=== PATIENT | female | born 1950 | race Caucasian/White ===

== ENCOUNTER → 2016-06-08 | Outpatient (CLI) | payer MEDICARE ==
[~2016-06-08] MED LIST: ACCUPRIL10 MG PO; ALBUTEROL2.5 MG/3 M INH; ALENDRONATE SOD35 MG PO; ALLEGRA ALLERGY60 MG PO; AMBIEN10 MG PO; AMLODIPINE BESY10 MG PO; ASPIR 8181 MG PO; ATROVENT INH S2.5 ML INH; BELSOMRA10 MG PO; BRILINTA90 MG PO; BROVANA15 MCG/2 M INH; CARDIZEM30 MG PO; COMBIVENT0.074 GM/I INH; CULTURELLE1 EACH PO; DALIRESP 500500 MCG PO; ECOTRIN81 MG PO; ELAVIL 10 MG TA10 MG PO; ELIQUIS 5 MG TAB5 MG PO; ELIQUIS5 MG PO; ENSURE LIQUID237 ML PO; ENSURE ORIGINA237 ML PO; FLAGYL500 MG PO; FLEXERIL 10 MG10 MG PO; FLONASE 0.05% N16 GM; HEPARIN SO5000 UNIT2 SC; HYDRALAZINE HCL50 MG PO; HYDROCHLOROTHIA25 MG PO; HYDROXYZINE HCL10 MG PO; HYDROXYZINE HCL50 MG PO; IMODIUM CAP 2 MG2 MG PO; INCRUSE ELLI62.5 MCG INH; ISOSORBIDE MON120 MG PO; LANOXIN TAB0.125 MG PO; LASIX 40 MG TAB40 MG PO; LASIX40 MG PO; LEVAQUIN500 MG PO; LIPITOR TAB 1010 MG PO; LIPITOR20 MG PO; LISINOPRIL40 MG PO; MEDROL2 MG PO; MEDROL4 MG PO; MEGACE400 MG/10 PO; METOPROLOL TART50 MG PO; MULTIPLE VITAM1 EAC1 PO; NITROGLYCERIN4.9 GM TL; NITROSTAT 0.40.4 MG SL; NORVASC 5 MG TAB5 MG PO; PERFOROMIS20 MCG/2 M INH; PLAVIX 75 MG TA75 MG PO; POTASSIUM CHLO20 ME1 PO; PRED FORTE OP; PREDNISONE 10 M10 MG PO; PROTONIX40 MG PO; PULMICORT0.25 MG/2 INH; RANEXA1000 MG PO; RANEXA500 MG PO; SENOKOT-S TABL1 EACH PO; SINGULAIR10 MG PO; SOLUMEDROL INJ125 MG IV; SPIRIVA18 MCG INH; SPIRONOLACTONE25 MG PO; SYMBICORT 16010.2 GM INH; TENORMIN 50 MG50 MG PO; TIZANIDINE HCL2 M1 PO; TIZANIDINE HCL2 MG PO; TRAMADOL HCL50 MG PO; TYLENOL 325MG325 MG PO; VITAMIN C 500500 MG PO; VITAMIN D50000 UNIT PO; VOLTAREN 0.1%2.5 ML OP; XOPENEX0.63 MG/3 INH; ZEBETA 5 MG TAB5 MG PO; ZESTRIL 40 MG T40 MG PO; ZOCOR10 MG PO
[2016-06-08 13:35] LABS: HEMOGLOBIN 8.9 gm/dl (12.3-15.3); RED BLOOD COUNT 3.24 M/UL (4.00-5.10); WHITE BLOOD COUNT 7.6 K/UL (4.5-11.0)
== END ==
LOC: LAB 13:01
PROVIDERS: Internal Medicine Interventional Cardiology
DX: Z01.810 Encounter for preprocedural cardiovascular examination (principal)
CPT/HCPCS: 36415; 80048; 85025; 85610; 85730; 93005

== ENCOUNTER 2016-06-09 06:15 | Outpatient (CLI) | payer MEDICARE ==
[~2016-06-09 06:15] MED LIST changes: -ACCUPRIL10 MG PO; -ALBUTEROL2.5 MG/3 M INH; -ATROVENT INH S2.5 ML INH; -BRILINTA90 MG PO; -BROVANA15 MCG/2 M INH; -CARDIZEM30 MG PO; -CULTURELLE1 EACH PO; -ENSURE LIQUID237 ML PO; -ENSURE ORIGINA237 ML PO; -FLAGYL500 MG PO; -FLONASE 0.05% N16 GM; -HEPARIN SO5000 UNIT2 SC; -HYDROXYZINE HCL10 MG PO; -IMODIUM CAP 2 MG2 MG PO; -INCRUSE ELLI62.5 MCG INH; -LANOXIN TAB0.125 MG PO; -LASIX 40 MG TAB40 MG PO; -LASIX40 MG PO; -LIPITOR TAB 1010 MG PO; -MEDROL4 MG PO; -MEGACE400 MG/10 PO; -METOPROLOL TART50 MG PO; -MULTIPLE VITAM1 EAC1 PO; -NITROGLYCERIN4.9 GM TL; -POTASSIUM CHLO20 ME1 PO; -SENOKOT-S TABL1 EACH PO; -SOLUMEDROL INJ125 MG IV; -SPIRONOLACTONE25 MG PO; -VITAMIN C 500500 MG PO; -XOPENEX0.63 MG/3 INH; -ZEBETA 5 MG TAB5 MG PO
[2016-06-09] MEDS ORDERED: SPIRONOLACTONE25 MG PO (07:36)
[2016-06-09] MEDS ORDERED: ALLEGRA ALLERGY60 MG PO (07:37)
[2016-06-09] MEDS ORDERED: FLONASE 0.05% N16 GM (07:38)
[2016-06-09] MEDS ORDERED: LASIX 40 MG TAB40 MG PO (07:38)
[2016-06-09] MEDS ORDERED: NITROGLYCERIN4.9 GM TL (07:39)
[2016-06-10] MEDS ORDERED: BRILINTA90 MG PO (08:30)
== END 2016-06-10 09:49 | disposition home or self-care (01) ==
LOC: CATH 06:15 → PROG CARE 13:21 → CATH 06-10 09:49
DX: I25.118 Atherosclerotic heart disease of native coronary artery with other forms of angina pectoris (principal); T82.855A Stenosis of coronary artery stent, initial encounter; R94.39 Abnormal result of other cardiovascular function study; I11.0 Hypertensive heart disease with heart failure; I50.9 Heart failure, unspecified; I49.5 Sick sinus syndrome; F17.200 Nicotine dependence, unspecified, uncomplicated; J44.9 Chronic obstructive pulmonary disease, unspecified; I48.0 Paroxysmal atrial fibrillation; E78.5 Hyperlipidemia, unspecified; Z95.0 Presence of cardiac pacemaker; Z95.1 Presence of aortocoronary bypass graft; Z95.5 Presence of coronary angioplasty implant and graft; Z88.6 Allergy status to analgesic agent; Z88.5 Allergy status to narcotic agent; Z88.0 Allergy status to penicillin; Z88.2 Allergy status to sulfonamides; Z88.8 Allergy status to other drugs, medicaments and biological substances; R60.9 Edema, unspecified; D64.9 Anemia, unspecified; Z79.82 Long term (current) use of aspirin; Z79.891 Long term (current) use of opiate analgesic; Z79.899 Other long term (current) drug therapy; Z79.02 Long term (current) use of antithrombotics/antiplatelets; F41.9 Anxiety disorder, unspecified; Z85.3 Personal history of malignant neoplasm of breast; Z86.79 Personal history of other diseases of the circulatory system; F32.9 Major depressive disorder, single episode, unspecified; G47.00 Insomnia, unspecified; J45.909 Unspecified asthma, uncomplicated; E55.9 Vitamin D deficiency, unspecified
CPT/HCPCS: 85347; 94640; 94664; C1725; C1769; C1874; C1887; C9600; J0461; J0583; J1644; J2250; J2270; J3010; J7030; Q0163; Q9965

== ENCOUNTER 2016-06-11 13:58 | Emergency (ER) | payer MEDICARE ==
[~2016-06-11 13:58] MED LIST changes: +BRILINTA90 MG PO; +FLONASE 0.05% N16 GM; +LASIX 40 MG TAB40 MG PO; +NITROGLYCERIN4.9 GM TL; +SPIRONOLACTONE25 MG PO
[2016-06-11 14:45] LABS: HEMOGLOBIN 8.8 gm/dl (12.3-15.3); RED BLOOD COUNT 3.22 M/UL (4.00-5.10); WHITE BLOOD COUNT 7.8 K/UL (4.5-11.0)
== END 2016-06-12 02:12 ==
LOC: ER1 13:58
PROVIDERS: Emergency Medicine
DX: I50.9 Heart failure, unspecified (principal); D64.9 Anemia, unspecified; K92.2 Gastrointestinal hemorrhage, unspecified; J44.9 Chronic obstructive pulmonary disease, unspecified; Z95.1 Presence of aortocoronary bypass graft; Z95.5 Presence of coronary angioplasty implant and graft; Z88.2 Allergy status to sulfonamides; Z88.0 Allergy status to penicillin; Z88.5 Allergy status to narcotic agent
CPT/HCPCS: 36415; 36600; 71010; 80053; 81001; 82550; 82553; 82803; 83880; 84484; 85025; 85610; 93005; 94640; 94660; 94664; 96372; 96374; 96375; 96376; 99285; J1650; J1940; J2270; J2930

== ENCOUNTER 2016-07-10 17:20 | Observation (INO) | payer MEDICARE ==
[~2016-07-10] VITALS: Ht 167.6 cm; Wt 59.2 kg
[2016-07-10 18:17] LABS: HEMOGLOBIN 10.3 gm/dl (12.3-15.3); RED BLOOD COUNT 3.85 M/UL (4.00-5.10); WHITE BLOOD COUNT 9.5 K/UL (4.5-11.0)
== END 2016-07-11 21:25 | disposition home or self-care (01) ==
LOC: ER1 17:20 → ZEROF 19:36 → MED SURG 4 21:11
PROVIDERS: Specialist/Technologist Athletic Trainer; ADMIT Internal Medicine
DX: E87.5 Hyperkalemia (principal); F41.9 Anxiety disorder, unspecified; D50.0 Iron deficiency anemia secondary to blood loss (chronic); I73.9 Peripheral vascular disease, unspecified; I48.2 Chronic atrial fibrillation; J44.9 Chronic obstructive pulmonary disease, unspecified; I25.10 Atherosclerotic heart disease of native coronary artery without angina pectoris; I10 Essential (primary) hypertension; I49.5 Sick sinus syndrome; Z85.3 Personal history of malignant neoplasm of breast; Z87.891 Personal history of nicotine dependence; Z88.0 Allergy status to penicillin; Z88.2 Allergy status to sulfonamides; Z88.5 Allergy status to narcotic agent; Z88.6 Allergy status to analgesic agent; Z79.82 Long term (current) use of aspirin; Z79.899 Other long term (current) drug therapy; Z90.49 Acquired absence of other specified parts of digestive tract; Z95.0 Presence of cardiac pacemaker; Z95.1 Presence of aortocoronary bypass graft; Z98.890 Other specified postprocedural states
CPT/HCPCS: 36415; 36600; 71010; 80048; 80053; 82550; 82553; 82803; 83874; 83880; 84439; 84443; 84484; 85025; 93005; 94640; 94660; 94664; 99285; G0378

== ENCOUNTER 2016-07-13 15:11 | Inpatient (IN) | payer MEDICARE ==
[~2016-07-13] VITALS: Ht 167.6 cm; Wt 53.3 kg
[2016-07-13 17:31] LABS: HEMOGLOBIN 9.5 gm/dl (12.3-15.3); RED BLOOD COUNT 3.62 M/UL (4.00-5.10); WHITE BLOOD COUNT 9.2 K/UL (4.5-11.0)
[2016-07-13] MEDS ORDERED: ALBUTEROL2.5 MG/3 M INH (23:29)
[2016-07-13] MEDS ORDERED: TYLENOL 325MG325 MG PO (23:29)
[2016-07-13] MEDS ORDERED: PLAVIX 75 MG TA75 MG PO (23:29)
[2016-07-13] MEDS ORDERED: HYDROCHLOROTHIA25 MG PO (23:30)
[2016-07-13] MEDS ORDERED: CULTURELLE1 EACH PO (23:32)
[2016-07-13] MEDS ORDERED: HYDROXYZINE HCL10 MG PO (23:32)
[2016-07-13] MEDS ORDERED: FLAGYL500 MG PO (23:33)
[2016-07-13] MEDS ORDERED: INCRUSE ELLI62.5 MCG INH (23:34)
[2016-07-13] MEDS ORDERED: IMODIUM CAP 2 MG2 MG PO (23:35)
[2016-07-13] MEDS ORDERED: POTASSIUM CHLO20 ME1 PO (23:39)
[2016-07-14 05:07] LABS: HEMOGLOBIN 9.3 gm/dl (12.3-15.3); RED BLOOD COUNT 3.61 M/UL (4.00-5.10); WHITE BLOOD COUNT 10.4 K/UL (4.5-11.0)
[2016-07-15 05:34] LABS: RED BLOOD COUNT 3.44 M/UL (4.00-5.10); WHITE BLOOD COUNT 12.8 K/UL (4.5-11.0)
[2016-07-16 05:25] LABS: HEMOGLOBIN 9.2 gm/dl (12.3-15.3); RED BLOOD COUNT 3.62 M/UL (4.00-5.10)
[2016-07-18 04:51] LABS: BUN/CREATININE RATIO 56 (0-10)
[2016-07-19 04:28] LABS: HEMOGLOBIN 9.2 gm/dl (12.3-15.3); RED BLOOD COUNT 3.59 M/UL (4.00-5.10)
--- NOTE | 2016-07-19 05:08 | NUR ---
VIRAL SWAB OBTAINED OF PATIENT GENITALIA AFTER EXPLAINING TO PATIENT WHAT TO EXPECT DURING TESTING. PT VOICES UNDERSTANDING. TOLERATED SWAB WELL. VOICES NO COMPLAINTS. PT REPOSITIONED AND SPECIMEN TRANSPORTED TO LAB AFTER LABELING AT PATIENT BEDSIDE
[2016-07-19 10:55] LABS: BUN/CREATININE RATIO 50 (0-10)
[2016-07-20 12:58] LABS: HEMOGLOBIN 9.6 gm/dl (12.3-15.3); RED BLOOD COUNT 3.72 M/UL (4.00-5.10); WHITE BLOOD COUNT 11.8 K/UL (4.5-11.0)
[2016-07-21 07:50] LABS: BUN/CREATININE RATIO 38 (0-10)
[2016-07-24 04:14] LABS: BUN/CREATININE RATIO 37 (0-10)
[2016-07-24 14:30] LABS: HEMOGLOBIN 8.9 gm/dl (12.3-15.3); RED BLOOD COUNT 3.45 M/UL (4.00-5.10); WHITE BLOOD COUNT 13.1 K/UL (4.5-11.0)
[2016-07-25 13:24] LABS: HEMOGLOBIN 7.9 gm/dl (12.3-15.3)
[2016-07-25 13:31] LABS: RED BLOOD COUNT 3.05 M/UL (4.00-5.10); WHITE BLOOD COUNT 9.3 K/UL (4.5-11.0)
[2016-07-25 13:44] LABS: BUN/CREATININE RATIO 25 (0-10)
[2016-07-26 15:22] LABS: HEMOGLOBIN 8.7 gm/dl (12.3-15.3); RED BLOOD COUNT 3.31 M/UL (4.00-5.10); WHITE BLOOD COUNT 9.9 K/UL (4.5-11.0)
[2016-07-26 15:36] LABS: BUN/CREATININE RATIO 24 (0-10)
== END 2016-07-29 16:11 | disposition other institution (70) | DRG 189 ==
LOC: ER1 15:11 → PROG CARE 19:42 → ZEROF 19:42 → PROG CARE 21:15 → M/S 07-26 19:50
PROVIDERS: Emergency Medicine; Hospitalist; Internal Medicine; Internal Medicine Pulmonary Disease; ADMIT Internal Medicine
DX: J96.21 Acute and chronic respiratory failure with hypoxia (principal); I50.33 Acute on chronic diastolic (congestive) heart failure; J15.1 Pneumonia due to Pseudomonas; G93.40 Encephalopathy, unspecified; J44.0 Chronic obstructive pulmonary disease with (acute) lower respiratory infection; J44.1 Chronic obstructive pulmonary disease with (acute) exacerbation; E46 Unspecified protein-calorie malnutrition; Z68.1 Body mass index [BMI] 19.9 or less, adult; I11.0 Hypertensive heart disease with heart failure; I48.0 Paroxysmal atrial fibrillation; I25.10 Atherosclerotic heart disease of native coronary artery without angina pectoris; S64.22XA Injury of radial nerve at wrist and hand level of left arm, initial encounter; R20.2 Paresthesia of skin; G31.84 Mild cognitive impairment of uncertain or unknown etiology; F32.9 Major depressive disorder, single episode, unspecified; I49.5 Sick sinus syndrome; D64.9 Anemia, unspecified; R19.7 Diarrhea, unspecified; J01.00 Acute maxillary sinusitis, unspecified; E78.5 Hyperlipidemia, unspecified; R50.9 Fever, unspecified; Z87.891 Personal history of nicotine dependence; S40.022A Contusion of left upper arm, initial encounter; S40.021A Contusion of right upper arm, initial encounter; Z96.651 Presence of right artificial knee joint; Z88.0 Allergy status to penicillin; Z95.5 Presence of coronary angioplasty implant and graft; Z95.1 Presence of aortocoronary bypass graft; Z95.0 Presence of cardiac pacemaker; Z88.2 Allergy status to sulfonamides; Z88.5 Allergy status to narcotic agent; Z88.8 Allergy status to other drugs, medicaments and biological substances; Z79.82 Long term (current) use of aspirin; Z79.01 Long term (current) use of anticoagulants; Z79.1 Long term (current) use of non-steroidal anti-inflammatories (NSAID); Z79.899 Other long term (current) drug therapy; Z87.81 Personal history of (healed) traumatic fracture; Z82.49 Family history of ischemic heart disease and other diseases of the circulatory system; Z80.1 Family history of malignant neoplasm of trachea, bronchus and lung; X58.XXXA Exposure to other specified factors, initial encounter; Y93.9 Activity, unspecified; Y92.009 Unspecified place in unspecified non-institutional (private) residence as the place of occurrence of the external cause; Z85.3 Personal history of malignant neoplasm of breast
CPT/HCPCS: 36415; 36600; 70450; 71010; 71250; 80048; 80053; 80202; 82140; 82550; 82553; 82803; 83605; 83735; 83874; 83880; 84100; 84132; 84439; 84443; 84484; 85025; 85027; 85610; 87040; 87070; 87077; 87186; 87205; 87252; 93005; 93971; 94640; 94660; 94664; 94760; 96374; 96375; 97110; 97116; 97530; 97535; 99285; G0378; J0456; J1120; J1650; J1940; J2185; J2270; J2920; J2930; J3370; J3480; J7030; J7050; J7070; J7509

== ENCOUNTER 2016-08-12 13:35 | Inpatient (IN) | payer MEDICARE ==
[~2016-08-12] VITALS: Ht 167.6 cm; Wt 60.3 kg
[~2016-08-12 13:35] MED LIST changes: +ALBUTEROL2.5 MG/3 M INH; +CULTURELLE1 EACH PO; +FLAGYL500 MG PO; +HYDROXYZINE HCL10 MG PO; +IMODIUM CAP 2 MG2 MG PO; +INCRUSE ELLI62.5 MCG INH; +POTASSIUM CHLO20 ME1 PO
[2016-08-12] MEDS ORDERED: ENSURE LIQUID237 ML PO (18:18)
[2016-08-12] MEDS ORDERED: MULTIPLE VITAM1 EAC1 PO (18:19)
[2016-08-12] MEDS ORDERED: MEGACE400 MG/10 PO (18:19)
[2016-08-12] MEDS ORDERED: SOLUMEDROL INJ125 MG IV (18:20)
[2016-08-12] MEDS ORDERED: BROVANA15 MCG/2 M INH (18:21)
[2016-08-12] MEDS ORDERED: SPIRIVA18 MCG INH (18:21)
[2016-08-12] MEDS ORDERED: VITAMIN C 500500 MG PO (18:22)
[2016-08-12] MEDS ORDERED: ZEBETA 5 MG TAB5 MG PO (18:22)
[2016-08-12] MEDS ORDERED: XOPENEX0.63 MG/3 INH (18:22)
[2016-08-12] MEDS ORDERED: NORVASC 5 MG TAB5 MG PO (18:23)
[2016-08-13 05:09] LABS: BUN/CREATININE RATIO 76 (0-10)
[2016-08-14 04:25] LABS: HEMOGLOBIN 7.4 gm/dl (12.3-15.3); RED BLOOD COUNT 2.88 M/UL (4.00-5.10); WHITE BLOOD COUNT 13.5 K/UL (4.5-11.0)
[2016-08-14 04:41] LABS: BUN/CREATININE RATIO 70 (0-10)
[2016-08-15 05:12] LABS: RED BLOOD COUNT 2.83 M/UL (4.00-5.10); WHITE BLOOD COUNT 11.7 K/UL (4.5-11.0)
[2016-08-15 05:27] LABS: BUN/CREATININE RATIO 40 (0-10)
[2016-08-16 04:55] LABS: HEMOGLOBIN 8.6 gm/dl (12.3-15.3); WHITE BLOOD COUNT 14.5 K/UL (4.5-11.0)
[2016-08-16 05:15] LABS: BUN/CREATININE RATIO 49 (0-10)
[2016-08-16 05:22] LABS: RED BLOOD COUNT 3.43 M/UL (4.00-5.10)
[2016-08-17 06:07] LABS: HEMOGLOBIN 8.8 gm/dl (12.3-15.3); RED BLOOD COUNT 3.51 M/UL (4.00-5.10)
[2016-08-17 06:25] LABS: BUN/CREATININE RATIO 63 (0-10)
[2016-08-18 04:21] LABS: HEMOGLOBIN 8.4 gm/dl (12.3-15.3); RED BLOOD COUNT 3.42 M/UL (4.00-5.10); WHITE BLOOD COUNT 14.5 K/UL (4.5-11.0)
[2016-08-18 05:05] LABS: BUN/CREATININE RATIO 55 (0-10)
[2016-08-19 04:37] LABS: HEMOGLOBIN 8.5 gm/dl (12.3-15.3); RED BLOOD COUNT 3.31 M/UL (4.00-5.10); WHITE BLOOD COUNT 12.1 K/UL (4.5-11.0)
[2016-08-19 04:58] LABS: BUN/CREATININE RATIO 68 (0-10)
[2016-08-20 03:33] LABS: HEMOGLOBIN 8.8 gm/dl (12.3-15.3); RED BLOOD COUNT 3.46 M/UL (4.00-5.10); WHITE BLOOD COUNT 13.4 K/UL (4.5-11.0)
[2016-08-20 03:50] LABS: BUN/CREATININE RATIO 63 (0-10)
[2016-08-21 04:34] LABS: HEMOGLOBIN 8.6 gm/dl (12.3-15.3); RED BLOOD COUNT 3.4 M/UL (4.00-5.10); WHITE BLOOD COUNT 10.2 K/UL (4.5-11.0)
[2016-08-21 04:46] LABS: BUN/CREATININE RATIO 87 (0-10)
[2016-08-22 03:36] LABS: RED BLOOD COUNT 3.56 M/UL (4.00-5.10)
[2016-08-22 03:37] LABS: WHITE BLOOD COUNT 13.2 K/UL (4.5-11.0)
[2016-08-22 03:52] LABS: BUN/CREATININE RATIO 97 (0-10)
[2016-08-23 04:06] LABS: HEMOGLOBIN 8.7 gm/dl (12.3-15.3); RED BLOOD COUNT 3.4 M/UL (4.00-5.10)
[2016-08-23 04:19] LABS: WHITE BLOOD COUNT 17.2 K/UL (4.5-11.0)
[2016-08-23 04:28] LABS: BUN/CREATININE RATIO 85 (0-10)
[2016-08-24 03:45] LABS: HEMOGLOBIN 8.8 gm/dl (12.3-15.3); RED BLOOD COUNT 3.5 M/UL (4.00-5.10); WHITE BLOOD COUNT 13.8 K/UL (4.5-11.0)
[2016-08-24 04:20] LABS: BUN/CREATININE RATIO 74 (0-10)
[2016-08-24] MEDS ORDERED: LANOXIN TAB0.125 MG PO (10:59)
[2016-08-24] MEDS ORDERED: LIPITOR TAB 1010 MG PO (10:59)
[2016-08-24] MEDS ORDERED: CARDIZEM30 MG PO (11:01)
[2016-08-24] MEDS ORDERED: HEPARIN SO5000 UNIT2 SC (11:04)
[2016-08-24] MEDS ORDERED: MEDROL4 MG PO (11:06)
[2016-08-24] MEDS ORDERED: METOPROLOL TART50 MG PO (11:09)
[2016-08-24] MEDS ORDERED: ATROVENT INH S2.5 ML INH (11:10)
[2016-08-24] MEDS ORDERED: XOPENEX0.63 MG/3 INH (11:11)
[2016-08-24] MEDS ORDERED: ENSURE ORIGINA237 ML PO (11:13)
[2016-08-24] MEDS ORDERED: SENOKOT-S TABL1 EACH PO (11:13)
[2016-08-24] MEDS ORDERED: LASIX40 MG PO (11:14)
[2016-08-24] MEDS ORDERED: ACCUPRIL10 MG PO (11:14)
== END 2016-08-24 13:20 | DRG 207 ==
LOC: CCU 13:35
PROVIDERS: Family Medicine; Internal Medicine; ADMIT Internal Medicine Infectious Disease
PROC: 5A1955Z Respiratory Ventilation, Greater than 96 Consecutive Hours (ICD-10-PCS; principal; 2016-08-14)
PROC: 0BH17EZ Insertion of Endotracheal Airway into Trachea, Via Natural or Artificial Opening (ICD-10-PCS; 2016-08-14)
PROC: 30233N1 Transfusion of Nonautologous Red Blood Cells into Peripheral Vein, Percutaneous Approach (ICD-10-PCS; 2016-08-15)
DX: J96.22 Acute and chronic respiratory failure with hypercapnia (principal); A41.9 Sepsis, unspecified organism; J15.1 Pneumonia due to Pseudomonas; I50.33 Acute on chronic diastolic (congestive) heart failure; R65.20 Severe sepsis without septic shock; G92 Toxic encephalopathy; G72.81 Critical illness myopathy; J44.0 Chronic obstructive pulmonary disease with (acute) lower respiratory infection; J44.1 Chronic obstructive pulmonary disease with (acute) exacerbation; N39.0 Urinary tract infection, site not specified; E46 Unspecified protein-calorie malnutrition; Z68.1 Body mass index [BMI] 19.9 or less, adult; J98.11 Atelectasis; E87.0 Hyperosmolality and hypernatremia; E87.2 Acidosis; J96.21 Acute and chronic respiratory failure with hypoxia; I11.0 Hypertensive heart disease with heart failure; B96.20 Unspecified Escherichia coli [E. coli] as the cause of diseases classified elsewhere; I25.5 Ischemic cardiomyopathy; I48.0 Paroxysmal atrial fibrillation; I48.2 Chronic atrial fibrillation; G56.32 Lesion of radial nerve, left upper limb; D64.9 Anemia, unspecified; I25.10 Atherosclerotic heart disease of native coronary artery without angina pectoris; E87.6 Hypokalemia; T42.4X5A Adverse effect of benzodiazepines, initial encounter; I49.5 Sick sinus syndrome; E78.5 Hyperlipidemia, unspecified; K21.9 Gastro-esophageal reflux disease without esophagitis; G89.29 Other chronic pain; M54.9 Dorsalgia, unspecified; K64.8 Other hemorrhoids; Z95.0 Presence of cardiac pacemaker; Z87.01 Personal history of pneumonia (recurrent); Z85.3 Personal history of malignant neoplasm of breast; Z92.3 Personal history of irradiation; Z87.891 Personal history of nicotine dependence; Z95.820 Peripheral vascular angioplasty status with implants and grafts; Z93.1 Gastrostomy status; Z79.02 Long term (current) use of antithrombotics/antiplatelets; Z79.82 Long term (current) use of aspirin; Z79.1 Long term (current) use of non-steroidal anti-inflammatories (NSAID); Z79.818 Long term (current) use of other agents affecting estrogen receptors and estrogen levels; Z79.51 Long term (current) use of inhaled steroids; Z79.899 Other long term (current) drug therapy; Z88.3 Allergy status to other anti-infective agents; Z88.1 Allergy status to other antibiotic agents; Z88.5 Allergy status to narcotic agent; Z88.6 Allergy status to analgesic agent; Z88.0 Allergy status to penicillin; Z88.2 Allergy status to sulfonamides; Z91.048 Other nonmedicinal substance allergy status; Z96.651 Presence of right artificial knee joint; Z96.612 Presence of left artificial shoulder joint; Z90.49 Acquired absence of other specified parts of digestive tract; Z98.890 Other specified postprocedural states; Z90.710 Acquired absence of both cervix and uterus; Z80.1 Family history of malignant neoplasm of trachea, bronchus and lung; Z82.49 Family history of ischemic heart disease and other diseases of the circulatory system
CPT/HCPCS: 31500; 36415; 36600; 71010; 80048; 80053; 80202; 81001; 82272; 82803; 83605; 83735; 83880; 84132; 85025; 85027; 86140; 86850; 86900; 86901; 86920; 87040; 87070; 87077; 87086; 87186; 87205; 92610; 94002; 94003; 94640; 94660; 97110; A4628; J0360; J1120; J1335; J1644; J1940; J1956; J2185; J2920; J3370; J7030; J7040; J7050; J7070; J7509; P9016